=== PATIENT | male | born 1995 | race African-American/Black ===

== ENCOUNTER 2025-01-07 13:06 | Inpatient (IN) | payer OTHER ==
[2025-01-07 14:19] VITALS: BMI 24.1
[2025-01-07] MEDS ORDERED: NICOTINE POLACRILEX 2 MG LOZENGE BC PRN (15:15)
[2025-01-07] MEDS ORDERED: BENZOCAINE/MENTHOL (CHLORASEPTIC ) LOZENGE MM PRN (15:15)
[2025-01-07] MEDS ORDERED: LOPERAMIDE HCL 2 MG CAPSULE PO PRN (15:15)
[2025-01-07] MEDS ORDERED: NALOXONE (NARCAN) HCL 4 MG/0.1 ML SPRAY NS PRN (15:15)
[2025-01-07] MEDS ORDERED: BENZONATATE 200 MG CAPSULE PO PRN (15:15)
[2025-01-07] MEDS ORDERED: MAG HYDROX/AL HYDROX/SIMETH 30 ML UNIT-DOSE CUP PO PRN (15:15)
[2025-01-07] MEDS ORDERED: POLYETHYLENE GLYCOL (HEALTHYLAX) 3350 17 GM PACKET PO PRN (15:15)
[2025-01-07] MEDS ORDERED: DICYCLOMINE HCL 10 MG CAPSULE PO PRN (15:15)
[2025-01-07] MEDS ORDERED: NICOTINE POLACRILEX 2 MG GUM BUC PRN (15:15)
[2025-01-07] MEDS ORDERED: ACETAMINOPHEN 325 MG TABLET (FP) PO PRN (15:15)
[2025-01-07] MEDS ORDERED: guaiFENesin 600 MG TABLET.ER (FP) PO PRN (15:15)
[2025-01-07] MEDS ORDERED: BISMUTH SUBSALICYLATE 262 MG/15 ML BTL PO PRN (15:15)
[2025-01-07] MEDS ORDERED: MAGNESIUM HYDROX 2400MG/30ML ORAL SUSPENSION 30 ML CUP PO PRN (15:15)
[2025-01-07] MEDS ORDERED: IBUPROFEN 400 MG TABLET (FP) PO PRN (15:15)
[2025-01-07] MEDS ORDERED: amLODIPine BESYLATE 5 MG TABLET (FP) ONE (17:57)
[2025-01-07] MEDS: amLODIPine BESYLATE 5 MG TABLET (FP) PO ONE (18:02)
[2025-01-07] MEDS: amLODIPine BESYLATE 5 MG TABLET (FP) PO SCH (18:43)
[2025-01-07] MEDS: THIAMINE 100 MG TABLET PO SCH (22:04)
[2025-01-07] MEDS: MELATONIN 5 MG TABLETS PO SCH (23:00)
[2025-01-08] MEDS: hydrOXYzine PAMOATE 25 MG CAPSULE (FP) PO PRN (07:07)
[2025-01-08] MEDS: METHOCARBAMOL 500 MG TABLET PO PRN (07:07)
[2025-01-08] MEDS ORDERED: chlordiazePOXIDE HCL 25 MG CAPSULE PO PRN (09:21)
[2025-01-08] MEDS ORDERED: amLODIPine BESYLATE 5 MG TABLET (FP) PO SCH (10:00)
[2025-01-08] MEDS: FOLIC ACID 1 MG TABLET (FP) PO SCH (10:13)
[2025-01-08] MEDS: PRENATAL VITAMINS W/ FOLIC ACID TABLET (FP) PO SCH (10:13)
[2025-01-08] MEDS: chlordiazePOXIDE HCL 25 MG CAPSULE PO SCH (10:14)
[2025-01-09] MEDS: DIVALPROEX SODIUM 500 MG TABLET E.C. PO SCH (22:13)
[2025-01-09] MEDS: risperiDONE 2 MG TABLET PO SCH (22:13)
[2025-01-10] MEDS: chlordiazePOXIDE HCL 25 MG CAPSULE PO SCH (06:00)
[2025-01-10] MEDS: ONDANSETRON *ODT* 4 MG TABLET SL PRN (06:13)
[2025-01-10] MEDS: risperiDONE 1 MG TABLET PO SCH (10:49)
[2025-01-11] MEDS ORDERED: chlordiazePOXIDE HCL 10 MG CAPSULE PO PRN
[2025-01-11] MEDS: chlordiazePOXIDE HCL 10 MG CAPSULE PO SCH (05:41)
[2025-01-12] MEDS: chlordiazePOXIDE HCL 10 MG CAPSULE PO SCH (05:20)
[2025-01-12] MEDS: HYDROCHLOROTHIAZIDE 25 MG TABLET (FP) PO ONE (13:14)
[2025-01-12] MEDS: NALTREXONE HCL 50 MG TABLET PO SCH (13:14)
[2025-01-12] MEDS: IBUPROFEN 600 MG TABLET (FP) PO PRN (15:17)
[2025-01-12] MEDS: cloNIDine HCL 0.1 MG TABLET PO PRN (21:54)
[2025-01-13] MEDS: chlordiazePOXIDE HCL 10 MG CAPSULE PO ONE (06:00)
[2025-01-13] MEDS: amLODIPine BESYLATE 5 MG TABLET (FP) PO SCH (09:22)
[2025-01-13 09:31] VITALS: BP 129/76; PULSE 105; RESP 18; TEMP 97.3
== END 2025-01-13 10:02 | disposition other institution (70) | DRG 774 ==
LOC: YASAS 13:06 → Y6N 17:20 → Y3N 01-08 02:59 → Y6N 01-08 12:55
PROVIDERS: ADMIT Allergy & Immunology; ATTEND Allergy & Immunology
PROC: HZ2ZZZZ Detoxification Services for Substance Abuse Treatment (ICD-10-PCS; principal; 2025-01-07)
DX: F10.230 Alcohol dependence with withdrawal, uncomplicated (principal); F14.10 Cocaine abuse, uncomplicated; F17.210 Nicotine dependence, cigarettes, uncomplicated; F25.0 Schizoaffective disorder, bipolar type; F41.9 Anxiety disorder, unspecified; G47.00 Insomnia, unspecified; I10 Essential (primary) hypertension
CPT/HCPCS: 80305; 80307; 93005; 93010; Q0162